=== PATIENT | male | born 1955 ===

== ENCOUNTER 2021-03-21 06:58 | Outpatient (CLI) | payer OTHER | END 2021-03-21 07:00 | disposition home or self-care (01) | LOC: LAB 06:58 | PROVIDERS: ATTEND Orthopaedic Surgery | DX: R07.89 Other chest pain (principal); I10 Essential (primary) hypertension ==

== ENCOUNTER 2021-03-30 08:22 | Day surgery (SDC) | payer OTHER | END 2021-03-30 12:20 | disposition home or self-care (01) | LOC: CIR.AMB 08:22 | PROVIDERS: ATTEND Orthopaedic Surgery | DX: M75.122 Complete rotator cuff tear or rupture of left shoulder, not specified as traumatic (principal) ==